=== PATIENT | male | born 1990 ===

== ENCOUNTER 2020-12-28 00:26 | Emergency (ER) | payer MEDICAID, SELFPAY ==
[2020-12-28] VITALS (8 sets, daily range): BP systolic 103–118; BP diastolic 55–75; PULSE 71–99; RESP 16–20; TEMP 36.5–37.1; O2SAT 95–99; BMI 23.6
--- NOTE | 2020-12-28 00:54 | ED.PSYCH ---
HPI - Psych General Chief Complaint: Psychiatric Symptoms Stated Complaint: Crisis Time Seen by Provider: 12/28/20 00:39 Source: patient Mode of arrival: ambulatory Limitations: no limitations History of Present Illness HPI Narrative: 30 yo male with anxiety and depression polysubstance abuse presents with SI complaint: suicidal ideation and feels depressed Onset (ago): day(s) Duration: constant History of same: Yes Relieving factors: none Exacerbating factors: drug use Context: recent drug abuse Associated psychiatric symptoms: depression and suicidal ideation Associated symptoms: denies other symptoms Treatments prior to arrival: none If self harm: admits thoughts of self harm Related Data Allergies Allergy/AdvReac Type Severity Reaction Status Date / Time No Known Allergies Allergy Verified 12/28/20 01:03 Review of Systems Review of Systems: Constitutional : No Fever, No Chills ENT/Mouth : No Ear Pain, No Nasal Congestion, No sore throat Eyes: No Eye Pain, No Swelling, No Redness Cardiovascular : No Chest Pain, No SOB Respiratory : No Cough, No Sputum, No Dyspnea Gastrointestinal : No Nausea, No Vomiting, No Diarrhea, No Hematochezia, No Melena Genitourinary : No Dysuria, No Urinary Frequency, No Hematuria Musculoskeletal : No Myalgias Skin : pos Skin Lesions, No rash Neuro : No Weakness, No Numbness, No Paresthesias, No Dizziness, No Headache Psych : positive Anxiety, positive Depression, positive SI, no HI Heme/Lymph: No Lymphadenopathy Endocrine : No Polyuria, No Polydipsia All other systems reviewed and are negative PMFSH Past Medical History Medical History Depression Polysubstance abuse Social History Social History (Updated 12/28/20 @ 01:18 by Danielle Woodard DO) Smoking Status: Current every day smoker Use of substances other than those prescribed or required for medical reasons: Yes Substance Use Type: Crack/Cocaine, Heroin and IV Drugs Advance Directives: No Advance Directives Information Provided: No Physical Exam Vital Signs: Vital Signs: Last Vital Signs Temp 97.7 F 12/28/20 01:21 Pulse 99 12/28/20 01:21 Resp 16 12/28/20 01:21 BP 118/62 12/28/20 01:21 Pulse Ox 99 12/28/20 01:21 Body Mass Index 23.6 Appearance: Alert. Oriented X3. No acute distress. Eyes: Pupils equal, round and reactive to light. ENT: Pharynx normal. Neck: Normal inspection. Neck supple. CVS: Normal heart rate and rhythm. Pulses normal. Respiratory: No respiratory distress. Breath sounds normal. Abdomen: Soft and nontender. Skin: Skin warm and dry. multiple picked lesions and skin popping lesions, R hand mild erythema no signs of abscess Extremities: No lower extremity edema. No calf ttp Neuro: Oriented X 3. No motor deficit. No sensory deficit. Course Course Course Narrative: signed out pending [facility] MDM - Psych MDM Narrative Medical decision making narrative: 30 yo male with polysubstance abuse and SI will need labs, PO cephalexin for some mild erythema around skin popping site, dispo per [facility] consult Lab Data Result diagrams: 12/28/20 02:07 12/28/20 02:07 Labs: Lab Results 12/28/20 12/28/20 12/28/20 Range/Units 01:36 02:00 02:07 WBC 9.4 (4.8-10.8) X10*3/uL RBC 3.62 L (4.60-5.80) X10*6/uL Hgb 10.3 L (14.0-18.0) g/dl Hct 31.7 L (42-52) % MCV 87.6 (80-98) fL MCH 28.5 (27.0-33.0) pg MCHC 32.5 (31.0-36.0) g/dl RDW 13.5 (11.0-16.0) % Plt Count 549 H (160-400) X10*3/uL MPV 8.8 L (9.4-12.4) fL Immature Gran % (Auto) 0.1 (0.0-0.4) % Neut % (Auto) 82.0 H (45-73) % Lymph % (Auto) 12.9 L (20-40) % [place] % (Auto) 4.5 (2-11) % Eos % (Auto) 0.3 (0-4) % Baso % (Auto) 0.2 (0-2) % Lymph # (Auto) 1.2 (1.2-4.9) X10*3/uL [place] # (Auto) 0.4 (0.1-1.2) X10*3/uL Eos # (Auto) 0.0 (0.0-0.4) X10*3/uL Baso # (Auto) 0.0 (0.0-0.2) X10*3/uL Abs Immat Gran (auto) 0.01 (0.00-0.03) X10*3/uL Absolute Neuts (auto) 7.7 (2.0-8.3) X10*3/uL Absolute Nucleated RBC 0.000 (0.0-0.012) X10*3/uL Nucleated RBC % (auto) 0.0 (0.0-0.2) /100WBC Specimen Comment Urine Opiates Screen POSITIVE H (Not Detect) Ur Barbiturates Screen Not Detected (Not Detect) Ur Phencyclidine Scrn Not Detected (Not Detect) Ur Amphetamines Screen Not Detected (Not Detect) U Benzodiazepines Scrn Not Detected (Not Detect) Urine Cocaine Screen POSITIVE H (Not Detect) U Marijuana (THC) Screen Not Detected (Not Detect) COVID-19 (ELÍAS) Negative (Negative) COVID-19 Clin Com See Note 12/28/20 Range/Units 02:18 WBC (4.8-10.8) X10*3/uL RBC (4.60-5.80) X10*6/uL Hgb (14.0-18.0) g/dl Hct (42-52) % MCV (80-98) fL MCH (27.0-33.0) pg MCHC (31.0-36.0) g/dl RDW (11.0-16.0) % Plt Count (160-400) X10*3/uL MPV (9.4-12.4) fL Immature Gran % (Auto) (0.0-0.4) % Neut % (Auto) (45-73) % Lymph % (Auto) (20-40) % [place] % (Auto) (2-11) % Eos % (Auto) (0-4) % Baso % (Auto) (0-2) % Lymph # (Auto) (1.2-4.9) X10*3/uL [place] # (Auto) (0.1-1.2) X10*3/uL Eos # (Auto) (0.0-0.4) X10*3/uL Baso # (Auto) (0.0-0.2) X10*3/uL Abs Immat Gran (auto) (0.00-0.03) X10*3/uL Absolute Neuts (auto) (2.0-8.3) X10*3/uL Absolute Nucleated RBC (0.0-0.012) X10*3/uL Nucleated RBC % (auto) (0.0-0.2) /100WBC Specimen Comment DELAY Urine Opiates Screen (Not Detect) Ur Barbiturates Screen (Not Detect) Ur Phencyclidine Scrn (Not Detect) Ur Amphetamines Screen (Not Detect) U Benzodiazepines Scrn (Not Detect) Urine Cocaine Screen (Not Detect) U Marijuana (THC) Screen (Not Detect) COVID-19 (ELÍAS) (Negative) COVID-19 Clin Com Discharge Plan Discharge Clinical Impression: Polysubstance abuse Cellulitis Qualifiers: Site of cellulitis: unspecified site Qualified Code(s): L03.90 - Cellulitis, unspecified
[2020-12-28] MEDS: cephALEXin 500 MG CAPSULE PO ×3 (01:44→20:48)
[2020-12-28 02:16] LABS: MANUAL DIFF FLAG NO
[2020-12-28 02:18] LABS: Amphetamine Screen Urine Not Detected (Not Detect); Barbiturates, Urine Not Detected (Not Detect); Benzodiazepines Screen Urine Not Detected (Not Detect); Cannabinoid Screen Urine Not Detected (Not Detect); Cocaine Screen Urine POSITIVE (Not Detect); Opiate Screen Urine POSITIVE (Not Detect); Phencyclidine Screen Urine Not Detected (Not Detect)
[2020-12-28 02:19] LABS: COVID-19 Test Negative (Negative)
[2020-12-28 02:19] LABS: Delay - Chemistry DELAY
[2020-12-28 02:23] LABS: Basophils Percent Auto 0.2 % (0-2); Eosinophils Percent Auto 0.3 % (0-4); Hematocrit 31.7 % (42-52); Hemoglobin 10.3 g/dl (14.0-18.0); Imm Gran Abs Auto 0.01 X10*3/uL (0.00-0.03); Imm Gran Pct Auto 0.1 % (0.0-0.4); Lymphocytes Absolute Auto 1.2 X10*3/uL (1.2-4.9); Lymphocytes Percent Auto 12.9 % (20-40); Mean Corpuscular HGB Conc 32.5 g/dl (31.0-36.0); Mean Corpuscular Hemoglobin 28.5 pg (27.0-33.0); Mean Corpuscular Volume 87.6 fL (80-98); Mean Platelet Volume 8.8 fL (9.4-12.4); Monocytes Absolute Auto 0.4 X10*3/uL (0.1-1.2); Monocytes Percent Auto 4.5 % (2-11); Neutrophils Absolute Auto 7.7 X10*3/uL (2.0-8.3); Platelet Count 549 X10*3/uL (160-400); Red Blood Count 3.62 X10*6/uL (4.60-5.80); Red Cell Distribution Width 13.5 % (11.0-16.0); White Blood Count 9.4 X10*3/uL (4.8-10.8)
[2020-12-28 02:52] LABS: Alanine Aminotransferase 26 U/L (0-40); Albumin Level 4.1 g/dL (3.5-5.0); Alkaline Phosphatase 74 U/L (39-117); Aspartate Amino Transferase 19 U/L (5-37); Bilirubin Direct 0.2 mg/dL (0.0-0.5); Bilirubin Total 0.3 mg/dL (0.0-1.0); Blood Urea Nitrogen 21 mg/dL (9-16); Calcium 9.2 mg/dL (8.4-10.2); Carbon Dioxide 27 mmol/L (22-29); Creatinine Clr Calc Pharmacy 89.1; Estimated Glomerular Filt Rate > 60; Glucose Random 91 mg/dL (60-115); Total Protein 7.8 g/dL (6.5-8.0)
--- NOTE | 2020-12-28 02:57 | PC.NURSE ---
summary faxed to [facility]. they will call back when she is able to go to the fax machine. at this time she is the only one and can not leave to check.
[2020-12-28 03:41] LABS: Anion Gap 10 (12-20); Chloride 105 mmol/L (96-108); Potassium 3.9 mmol/L (3.3-5.1); Sodium 140 mmol/L (135-145)
--- NOTE | 2020-12-28 07:02 | PC.NURSE ---
Report received. PT currently sleeping, respirations even and unlabored, in no apparent distress. PT is waiting to be seen by N.
--- NOTE | 2020-12-28 09:31 | PC.NURSE ---
BHN at bedside for eval.
--- NOTE | 2020-12-28 12:42 | PC.NURSE ---
PT asked for medication for withdrawal symptoms, COWs is 11. PT states he is interested in starting suboxone, last used heroin last last night, just before coming in Provider notified.
[2020-12-28] MEDS: cloNIDine HCL 0.1 MG TABLET PO (14:17)
[2020-12-28] MEDS: LORazepam 1 MG TABLET 2 MG PO ×2 (14:17→22:16)
[2020-12-28] MEDS: Ibuprofen 400 MG TABLET PO (14:18)
[2020-12-28 16:22] LABS: COVID-19 Test Negative (Negative)
[2020-12-28] MEDS: Nicotine 21 MG PATCH.TD24 TRANSDERMA (21:19)
[2020-12-28] MEDS: Buprenorphine/Naloxone 4/1 mg FILM 1 FILM SUBLINGUAL ×2 (21:21→22:44)
[2020-12-28] MEDS: Ibuprofen 600 MG TABLET PO (21:22)
--- NOTE | 2020-12-28 21:24 | PC.NURSE ---
pt started on suboxone. pt confirms only using heroin. per md clincially appropriate to began suboxone treatment.
--- NOTE | 2020-12-28 22:09 | PC.NURSE ---
pt medicated at 2119 with 1st dose of suboxone, it made it worse . Pt reporting, increasing anxiety, no tremors noted. MD aware.
--- NOTE | 2020-12-28 22:21 | PC.NURSE ---
COWs 3 at this time. medicated with 2mg ativan po waiting for effect.
[2020-12-29] VITALS (10 sets, daily range): BP systolic 117–141; BP diastolic 63–78; PULSE 68–83; RESP 16–20; TEMP 36.8–37.1; O2SAT 97–99
--- NOTE | 2020-12-29 06:40 | PC.NURSE ---
Monitored through out overnight. no acute incidents.
--- NOTE | 2020-12-29 07:28 | PC.NURSE ---
Report received from KINDRA Domingo . Pt resting, resp unlabored.
[2020-12-29] MEDS: Buprenorphine/Naloxone 8/2 mg FILM 1 FILM SUBLINGUAL ×2 (08:59→20:30)
[2020-12-29] MEDS: cephALEXin 500 MG CAPSULE PO ×2 (09:07→20:30)
[2020-12-29] MEDS: Ibuprofen 600 MG TABLET PO (09:07)
--- NOTE | 2020-12-29 10:57 | PC.NURSE ---
Pt awoke, reported gheneralized aching due to withdrawal. Pt medicated w/ ibuprofen and am medications as requested. Currently resting, resp unlabored.
--- NOTE | 2020-12-29 11:45 | PC.NURSE ---
Pt awake, reporting back pain and 'jitteriness' despite medications given. Provider aware.
[2020-12-29] MEDS: Buprenorphine/Naloxone 4/1 mg FILM 1 FILM SUBLINGUAL (12:34)
[2020-12-29] MEDS: Nicotine 21 MG PATCH.TD24 TRANSDERMA (12:53)
--- NOTE | 2020-12-29 13:44 | PC.NURSE ---
Pt resting, resp unlabored.
--- NOTE | 2020-12-29 13:45 | MHC.RECOVRN ---
30 year old male presented to [facility] on 12/28/20, ambulatory, due to pt has been off his medications for on month, feeling s1 for many reasons in his life, unable to see his 9 year old son. homeless, girlfriend broke up with him, lose of job and a place to live. plan to harm self by overdosing on herion per triage ED RN. On , pt received a total of 8mg of Suboxone to alleviate withdrawal symptoms. Pt was then ordered 8mg BID, beginning 12/29/20. T/w met with pt after receiving first dose of Suboxone on 12/29 as pt was continuing to c/o withdrawal sympoms. Pt reports using between 5-20 bundles heroin, IV, daily. Pt states I would use whatever I could get. Pt c/o of stomach discomfort, anxiety, muscle aches. COWS score 14. T/w discussed and referred case to Priyanka Kinney APRN who ordered additional 4 mg Suboxone to reduce withdrawal symptoms. Will continue to monitor.
--- NOTE | 2020-12-29 13:45 | PM.EVENT ---
Event Note Date of Service: 12/29/20 Event Note: Addiction consult: Patient seen in area of ED Started on Buprenorphine 8mg BID yesterday (12/28). Today reportedly felt better for a very brief period after 8am dose, then started to feel withdrawal sx again. When seen by this appeals writer, patient was laying in bed, reporting chills, nausea, body aches, restlessness. Denies vomiting or lose stools. Noticeable abrasions on forehead where he reports he was injecting cocaine. Substance use history reviewed with Recovery Support RN Jourdan [facility] shows that patient has been prescribed suboxone in the past--most recently in June 2020. Unclear if patient has relocated to this area as all prescription history is for [facility]. Plan: -additional 4mg suboxone now -keep 8mg HS dose (suboxone) adn continue with 8/2mg BID dosing -PRN Clonidine and Hydroxyzine order places -awaiting admission to [facility]
[2020-12-29] MEDS: cloNIDine HCL 0.1 MG TABLET PO (14:36)
[2020-12-29] MEDS: Cyclobenzaprine HCl 10 MG TABLET PO (14:36)
--- NOTE | 2020-12-29 15:54 | PC.NURSE ---
Pt resting, resp unlabored.
--- NOTE | 2020-12-29 17:01 | PC.NURSE ---
Pt resting, resp unlabored
--- NOTE | 2020-12-29 18:32 | PC.NURSE ---
Pt ate small amount of supper. No further report of pain. Pt currently resting, resp unlabored.
[2020-12-29] MEDS: hydrOXYzine HCL 50 MG TABLET PO (20:30)
--- NOTE | 2020-12-29 20:58 | PC.NURSE ---
Patient is in his bed resting quietly, compliant with HS PO medication, mood depressed and flat. no distress reported, vital signs unremarkable. will continue to monitor.
--- NOTE | 2020-12-29 22:22 | PC.NURSE ---
PATIENT REFUSED VITALS ,RN AWARE.
[2020-12-30] VITALS (10 sets, daily range): BP systolic 115–133; BP diastolic 65–80; PULSE 55–98; RESP 16–20; TEMP 36.3–37.5; O2SAT 95–100
[2020-12-30] MEDS: Ibuprofen 600 MG TABLET PO (02:47)
[2020-12-30] MEDS: cloNIDine HCL 0.1 MG TABLET PO ×3 (02:47→20:30)
--- NOTE | 2020-12-30 07:10 | PC.NURSE ---
Report received from KINDRA Layne. Pt resting, resp unlabored.
[2020-12-30] MEDS: Nicotine 21 MG PATCH.TD24 TRANSDERMA (10:28)
[2020-12-30] MEDS: cephALEXin 500 MG CAPSULE PO ×2 (10:29→20:30)
[2020-12-30] MEDS: Buprenorphine/Naloxone 8/2 mg FILM 1 FILM SUBLINGUAL ×2 (10:29→20:30)
--- NOTE | 2020-12-30 10:45 | PC.NURSE ---
Pt awake- reports continued symptoms of withdrawal including stomach cramps. Pt medicated w/ am meds as ordered- will re-evaluate. Pt strongly endorses SI, no plan- states that SI is now 'worse than ever.' Pt awaiting eats bed- care team notified that pt is endorsing SI.
--- NOTE | 2020-12-30 11:37 | PC.NURSE ---
Called N re: pt report of SI, worsening today. Per N, pt will be re-evaluated to confirm whether EATS continues to be appropriate placement.
[2020-12-30] MEDS: hydrOXYzine HCL 50 MG TABLET PO (12:17)
[2020-12-30] MEDS: Cyclobenzaprine HCl 10 MG TABLET PO (12:24)
--- NOTE | 2020-12-30 12:29 | PC.NURSE ---
A Ramon aware of pt symptoms- pt medicated w/ flexeril as ordered.
--- NOTE | 2020-12-30 12:37 | MHC.RECOVRN ---
T/w met with pt to address withdrawal symptoms. Pt reports difficulty sitting still, generalized body aches, stomach cramps, anxiety. Pt appears generally unwell and uncomfortable, pale, rhinorrhea; however, skin is smooth, no tremor, no yawning. When asked about the additional 4 mg Suboxone given on 12/29, pt states I don't really know if it helped. I only took it that once. Pt reports that Flexeril did help with body aches and pt was able to sleep after given that dose (on 12/29). T/w spoke with [facility], and encouraged use of PRNs, including Flexeril.
--- NOTE | 2020-12-30 14:30 | PC.NURSE ---
Late entry: A Ramon aware of continued symptoms, in to evaluate. Labs, MRI ordered. Phlebotomy in to draw pt- unable to draw, pt minimally cooperative, declining further labs. Pt stating that these are typical withdrawal symptoms. Pt stated : I use a huge amount. I'm not an average user.' Pt reports that he used $5,000 of heroin in 6 days, and that he now has to inject in his forehead because he no longer has venous access. Pt irritable, also declining MRI at this time, stating that this is the way he typically withdraws, maybe slightly worse. Pt reports the pain typically settles in his back, though this time a little worse. Pt mildly irritable, states that at this time he feels the flexeril/clonidine has been somewhat effective.
--- NOTE | 2020-12-30 14:53 | PC.NURSE ---
Shwetha Navarro aware pt declining labs and MRI at this time.
--- NOTE | 2020-12-30 16:56 | PC.NURSE ---
Pt continues to decline labs or MRI. Reports no change in withdrawal symptoms. Pt eating small amount at a time.
[2020-12-30 16:58] LABS: Glucose Urine UA NEG (NEG); Leukocyte Esterase Urine NEG (NEG); Nitrite Urine NEG (NEG); PH 6.5 (5.0-8.0); Urine Blood NEG (NEG); Urine Ketones NEG (NEG); Urine Protein NEG (NEG-TRACE)
[2020-12-30 17:11] LABS: Appearance Urine CLEAR; Color Urine YELLOW
--- NOTE | 2020-12-30 17:16 | PC.NURSE ---
BHN in to evaluate
[2020-12-30 18:13] LABS: RBC Urine 0 /HPF (0); Squamous Epithelial Cell Urine TRACE /LPF; WBC Urine 0 /HPF (0-4)
--- NOTE | 2020-12-30 18:14 | PC.NURSE ---
Pt requesting tylenol for pain. Pt reports pain location, quality, intensity unchanged- lower, mid back. No other report of pain, gait steady, able to eat dinner.
--- NOTE | 2020-12-30 18:47 | PC.NURSE ---
assistant cross country coach in to see.
--- NOTE | 2020-12-30 19:32 | PC.NURSE ---
Patient just got reassessed by the N, disposition changed, patient is now on section 12 inpatient bed search, patient was made aware and seems ok with disposition, denied distress at this time, will continue to monitor.
[2020-12-31 00:06] VITALS: BP 120/62; PULSE 49; RESP 17; TEMP 36.7; O2SAT 100
[2020-12-31] MEDS: Ibuprofen 600 MG TABLET PO ×2 (06:30→18:54)
--- NOTE | 2020-12-31 08:25 | PC.NURSE ---
PT REFUSING MRI, PROVIDER AWARE. STATES PAIN IS FROM WITHDRAWAL.
[2020-12-31] MEDS: Nicotine 21 MG PATCH.TD24 TRANSDERMA (08:42)
[2020-12-31] MEDS: cephALEXin 500 MG CAPSULE PO (08:42)
[2020-12-31] MEDS: Buprenorphine/Naloxone 8/2 mg FILM 1 FILM SUBLINGUAL (08:42)
--- NOTE | 2020-12-31 08:49 | PC.NURSE ---
PT RESTING QUIETLY ON BED. CLOSE OBS MAINTAINED
[2020-12-31 08:51] VITALS: BP 121/58; PULSE 62; RESP 16; TEMP 36.6; O2SAT 99
[2020-12-31 13:39] VITALS: BP 121/58
[2020-12-31] MEDS: Cyclobenzaprine HCl 10 MG TABLET PO (13:39)
[2020-12-31] MEDS: cloNIDine HCL 0.1 MG TABLET PO (13:39)
--- NOTE | 2020-12-31 15:11 | PC.NURSE ---
Report received. Pt asleep at current. No signs of distress. Respirations even and unlabored.
[2020-12-31 16:16] VITALS: BP 119/62; PULSE 57; RESP 16; TEMP 36.9; O2SAT 99
--- NOTE | 2020-12-31 16:35 | PC.NURSE ---
Ned, RN from [facility], requesting nurse to nurse on pt. No set admission time, whenever you can get him here . [facility] contacted to verify pt had been accepted at [place]. [facility] verified that pt had been accepted at 1000 this morning, and the accepting doctor was Dr. Barnett. Transport to be arranged.
--- NOTE | 2020-12-31 17:23 | PC.NURSE ---
Pt resting in bed at current, awaiting transfer to [facility], no complaints at this time.
== END 2020-12-31 19:43 ==
PROVIDERS: Nurse Practitioner Primary Care; Physician Assistant; Emergency Provider Emergency Medicine
DX: F11.23 Opioid dependence with withdrawal (principal); F19.10 Other psychoactive substance abuse, uncomplicated; R45.851 Suicidal ideations; F32.9 Major depressive disorder, single episode, unspecified; F41.9 Anxiety disorder, unspecified; L03.113 Cellulitis of right upper limb; Z20.822 Contact with and (suspected) exposure to COVID-19; M54.5 Low back pain; Z59.0 Homelessness
CPT/HCPCS: 36415; 80048; 80076; 80307; 81001; 85025; 87635; 99285